=== PATIENT | male | born 1975 | race Caucasian/White ===

== ENCOUNTER 2018-07-14 21:02 | Emergency (ER) | payer OTHER ==
[~2018-07-14] VITALS: Ht 185.4 cm; Wt 100.0 kg
--- NOTE | 2018-07-14 21:25 | NUR ---
FIRST CONTACT WITH PT. ED MD at bedside. Pt resting on gurney connected to [employer] trailers and motor homes, NIBP, and continous pulse ox. Per pt, "Today I was at work at [employer], I started getting this pain in my chest (left chest) and arm, my heart felt really fast, and my co-worker said I looked as white as a ghost. I had this chest pain last , I chalked it up to bad cold symptoms. It went away and I felt fine last Wednesday. Right now it still hurts (center chest), the (left) arm pain has gone away. I am really dizzy, lighteheaded, and feel weak. My dad from a heart attach at 54." NADN. All safety measures in place. Call light within reach. Pt denies trauma, N/V/D, SOB. No needs expressed at this time.
[2018-07-14] MEDS ORDERED: ASPIRIN 81 MG TABLET CHEW PO ONE (21:30)
[2018-07-14] MEDS ORDERED: CARB400T4 PO (21:34)
[2018-07-14] MEDS ORDERED: QUET100T4 PO (21:34)
[2018-07-14] MEDS ORDERED: ASPIRIN 81 MG TABLET CHEW ONE (21:39)
[2018-07-14 22:08] LABS: BASOPHILS # (AUTO) 0.07 x10^3/uL (0-0.1); BASOPHILS % (AUTO) 1 % (0-1); EOSINOPHILS # (AUTO) 0.26 x10^3/uL (0-0.4); EOSINOPHILS % (AUTO) 3 % (1-7); LYMPHOCYTES # (AUTO) 2.67 x10^3/uL (1-3.4); LYMPHOCYTES % (AUTO) 27 % (22-44); MD NO; MEAN CORPUSCULAR HEMOGLOBIN 32.3 pg (27.5-34.5); MEAN CORPUSCULAR HGB CONC 34.4 g/dL (33.2-36.2); MEAN CORPUSCULAR VOLUME 93.8 fL (81-97); MEAN PLATELET VOLUME 7.7 fL (7.4-10.4); MONOCYTES # (AUTO) 0.66 x10^3/uL (0.2-0.8); MONOCYTES % (AUTO) 7 % (2-9); NEUTROPHILS # (AUTO) 6.41 x10^3/uL (1.8-6.8); NEUTROPHILS % (AUTO) 64 % (42-75); PLATELET COUNT 380 x10^3/uL (130-400); RED BLOOD COUNT 5.03 x10^6/uL (4.38-5.82); RED CELL DISTRIBUTION WIDTH 14.9 % (9.4-14.8)
[2018-07-14] MEDS ORDERED: PRAV20TA2 PO (22:12)
[2018-07-14] MEDS ORDERED: PARO25TA3 PO (22:12)
[2018-07-14 22:16] LABS: ALBUMIN 3.9 g/dL (3.4-5.0); ANION GAP 6 mmol/L (5-15); CALCIUM 8.6 mg/dL (8.5-10.1); CHLORIDE 109 mmol/L (98-107); CREATININE 0.77 mg/dL (0.7-1.3)
[2018-07-14 22:18] VITALS: BP 117/70
[2018-07-14 22:20] LABS: TROPONIN I < 0.015 ng/mL (0.000-0.045)
--- NOTE | 2018-07-14 23:48 | NUR ---
Patient given discharge instructions and they have confirmed that they understand the instructions. Patient ambulatory with steady gait. Pt left with discharge paperwork, all personal belongings, and work note.
== END 2018-07-14 23:50 | disposition home or self-care (01) ==
LOC: ED 21:55
DX: R07.89 Other chest pain (principal); F31.9 Bipolar disorder, unspecified; E78.5 Hyperlipidemia, unspecified
CPT/HCPCS: 36415; 71045; 80048; 82040; 84484; 85025; 93005; 99284

== ENCOUNTER 2018-09-02 22:57 | Emergency (ER) | payer OTHER ==
[~2018-09-02] VITALS: Ht 185.4 cm; Wt 99.6 kg
[~2018-09-02 22:57] MED LIST: CARB400T4 PO; PARO25TA3 PO; PRAV20TA2 PO; QUET100T4 PO
[2018-09-02 23:08] VITALS: BP 118/67
[2018-09-02 23:47] LABS: BASOPHILS # (AUTO) 0.05 x10^3/uL (0-0.1); BASOPHILS % (AUTO) 1 % (0-1); EOSINOPHILS # (AUTO) 0.72 x10^3/uL (0-0.4); EOSINOPHILS % (AUTO) 7 % (1-7); LYMPHOCYTES # (AUTO) 3.69 x10^3/uL (1-3.4); LYMPHOCYTES % (AUTO) 37 % (22-44); MD NO; MEAN CORPUSCULAR HEMOGLOBIN 31.6 pg (27.5-34.5); MEAN CORPUSCULAR HGB CONC 33.7 g/dL (33.2-36.2); MEAN CORPUSCULAR VOLUME 93.8 fL (81-97); MEAN PLATELET VOLUME 7.8 fL (7.4-10.4); MONOCYTES # (AUTO) 0.93 x10^3/uL (0.2-0.8); MONOCYTES % (AUTO) 9 % (2-9); NEUTROPHILS # (AUTO) 4.49 x10^3/uL (1.8-6.8); NEUTROPHILS % (AUTO) 46 % (42-75); PLATELET COUNT 364 x10^3/uL (130-400); RED BLOOD COUNT 5.17 x10^6/uL (4.38-5.82); RED CELL DISTRIBUTION WIDTH 14.4 % (9.4-14.8)
[2018-09-03] LABS: ANION GAP 2 mmol/L (5-15); CHLORIDE 110 mmol/L (98-107); CREATININE 0.83 mg/dL (0.7-1.3)
--- NOTE | 2018-09-03 01:43 | NUR ---
PT TO ROOM FROM LOBBY
[2018-09-03] MEDS ORDERED: ONDANSETRON ODT 8 MG PO ONE (02:00)
[2018-09-03] MEDS ORDERED: IBUPROFEN 600 MG TABLET PO ONE (02:00)
[2018-09-03] MEDS ORDERED: ACETAMINOPHEN 500 MG TABLET PO ONE (02:00)
[2018-09-03] MEDS ORDERED: ACETAMINOPHEN 500 MG TABLET ONE (02:06)
[2018-09-03] MEDS ORDERED: IBUPROFEN 600 MG TABLET ONE (02:06)
[2018-09-03] MEDS ORDERED: ONDANSETRON ODT 8 MG ONE (02:06)
--- NOTE | 2018-09-03 02:36 | NUR ---
PT MEDICATED PER EMAR. 5 RIGHTS ADDRESSED.
--- NOTE | 2018-09-03 02:36 | NUR ---
Patient/Caregiver given discharge instructions and they have confirmed that they understand the instructions. Patient ambulatory with steady gait.
== END 2018-09-03 02:39 | disposition home or self-care (01) ==
LOC: ED 09-03 02:13
DX: B34.9 Viral infection, unspecified (principal); R11.2 Nausea with vomiting, unspecified; F17.210 Nicotine dependence, cigarettes, uncomplicated; E78.5 Hyperlipidemia, unspecified; Z88.5 Allergy status to narcotic agent
CPT/HCPCS: 36415; 80048; 85025; 99284; Q0162

== ENCOUNTER 2020-04-02 11:06 | Emergency (ER) | payer OTHER ==
[~2020-04-02] VITALS: Ht 185.4 cm; Wt 96.0 kg
[~2020-04-02 11:06] MED LIST changes: -PARO25TA3 PO; +PARO25TA4 PO
[2020-04-02 11:35] VITALS: BP 132/72
--- NOTE | 2020-04-02 11:58 | NUR ---
VSS. PT VERBALIZED UNDERSTANDING OF DISCHARGE INSTRUCTIONS. AMBULATED TO DISCHARGE DESK.
== END 2020-04-02 11:59 | disposition home or self-care (01) ==
LOC: ED 11:28
DX: K04.7 Periapical abscess without sinus (principal); R22.0 Localized swelling, mass and lump, head; E78.5 Hyperlipidemia, unspecified; Z87.891 Personal history of nicotine dependence
CPT/HCPCS: 99283